=== PATIENT | male | born 1960 | race Hispanic/Latino ===

== ENCOUNTER → 2024-11-09 10:21 | Outpatient (CLI) | payer OTHER, SELFPAY ==
--- NOTE | 2024-11-09 10:24 | DI.RAD.S_ITS ---
PROCEDURE: XR FOOT LT MIN 3V INDICATIONS: left foot pain TECHNIQUE: 3 views of the foot were acquired. COMPARISON: [facility], , XR FOOT LT MIN 3V, 10/27/2024, 11:03. FINDINGS: Bones: No fractures or dislocations. Mild 1st metatarsal hallux valgus. Mild degenerative endplate spurring. There is erosive change along the dorsal medial aspect of the 1st metatarsal. Mild irregular the distal fibula, possibly healing fracture. No suspicious bony lesions. Soft tissues: No tibiotalar joint effusion. Achilles tendon appears normal. IMPRESSION: First MTP hallux valgus and degenerative changes. First metatarsal erosive change may indicate inflammatory arthritis. Correlate clinically. Possible healing distal fibular fracture. Dictated by: Aleida Fall M.D. on 11/09/2024 at 17:50 Approved by: Aleida Fall M.D. on 11/09/2024 at 17:52
== END ==
PROVIDERS: PCP Family Medicine; Referring Provider Family Medicine; Visit Provider Family Medicine
DX: M79.672 Pain in left foot (principal); M19.072 Primary osteoarthritis, left ankle and foot
CPT/HCPCS: 73630